=== PATIENT | male | born 1985 | race Two or more races ===

== ENCOUNTER 2017-08-05 15:50 | Emergency (ER) | payer BC ==
[2017-08-05] MEDS ORDERED: Ketorolac 60 MG/2 ML SDV IM ONE (16:32)
--- NOTE | 2017-08-05 16:32 | EDM.PDOC ---
ED HPI GENERAL MEDICAL PROBLEM - General Chief Complaint: Back Pain or Injury Stated Complaint: BACK PAIN Time Seen by Provider: 08/05/17 16:30 Source of Information: Reports: Patient - History of Present Illness INITIAL COMMENTS - FREE TEXT/NARRATIVE: HISTORY AND PHYSICAL: History of present illness: Patient with history of low back pain last visited in 2005 presents with 7 out of 10 low back pain radiating to his left buttock as well as down the right posterior extremity to the level of the knee after lifting batteries in his garage at home. No footdrop or saddle anesthesia no bowel or urine symptoms Patient has taken ibuprofen without much benefit since Thursday when the injury occurred last dose at 10 AM, he did this local chiropractor who recommended he be seen through the emergency room Patient has limited movement due to pain Review of systems: As per history of present illness and below otherwise all systems reviewed and negative. Past medical history: As per history of present illness and as reviewed below otherwise noncontributory. Surgical history: As per history of present illness and as reviewed below otherwise noncontributory. Social history: No reported history of drug or alcohol abuse. Family history: As per history of present illness and as reviewed below otherwise noncontributory. Physical exam: HEENT: Atraumatic, normocephalic, pupils reactive, negative for conjunctival pallor or scleral icterus, mucous membranes moist, throat clear, neck supple, nontender, trachea midline. Lungs: Clear to auscultation, breath sounds equal bilaterally, chest nontender. Heart: S1S2, regular, negative for clicks, rubs, or JVD. Abdomen: Soft, nondistended, nontender. Negative for masses or hepatosplenomegaly. Negative for costovertebral tenderness. Pelvis: Stable nontender. Genitourinary: Deferred. Rectal: Deferred. Extremities: Atraumatic, negative for cords or calf pain. Neurovascular unremarkable. Neuro: Awake, alert, oriented. Cranial nerves II through XII unremarkable. Cerebellum unremarkable. Motor and sensory unremarkable throughout. Exam nonfocal. No footdrop or saddle anesthesia Diagnostics: []Lumbar spine Therapeutics: []Toradol 60 IM Rest ice ibuprofen Discharge was considered however patient has considerable difficulty getting on and off exam table he does not feel ably able to make it up a flight of stairs he has been urinating in a can as he is unable to get up to go to the bathroom. Patient be admitted for intractable pain discussed with Dr. Reyna Impression: Intractable pain []Low back pain Right sciatic distribution pain Definitive disposition and diagnosis as appropriate pending reevaluation and review of above. Back Pain Score (Numeric/FACES): 10 - Related Data Allergies Allergy/AdvReac Type Severity Reaction Status Date / Time No Known Allergies Allergy Verified 08/05/17 16:16 Home Meds: Home Meds Ibuprofen 4 tab PO Q4HR PRN 08/05/17 [History] Past Medical History - Past Health History Medical/Surgical History: Denies Medical/Surgical History Other Cardiovascular History: "Have had elevated BP, this has been true for awhile now" Other Respiratory History: "Stop breathing when I roll onto my back" Denies having a sleep study, reports no local practitioner in the area Other Musculoskeletal History: hx: fracturing Middle finger in Left hand, Current fracture to Right ankle Other Psychiatric History: hx: anxiety in past Social & Family History - Family History Family Medical History: Noncontributory - Tobacco Use Smoking Status *Q: Never Smoker - Caffeine Use Caffeine Use: Reports: None - Alcohol Use Days Per Week of Alcohol Use: 1 Number of Drinks Per Day: 5 Total Drinks Per Week: 5 - Recreational Drug Use Recreational Drug Use: No Drug Use in Last 12 Months: No ED ROS GENERAL - Review of Systems Review Of Systems: ROS reveals no pertinent complaints other than HPI. ED EXAM, GENERAL - Physical Exam Exam: See Below Course - Vital Signs Last Recorded V/S: Last Vital Signs Temp 97.2 F 08/05/17 16:17 Pulse 78 08/05/17 16:17 Resp 14 08/05/17 16:17 BP 136/88 08/05/17 16:17 Pulse Ox 96 08/05/17 16:17 - Orders/Labs/Meds Orders: Active Orders 24 hr Category Date Time Status Lumbar Spine 2 or 3V [CR] Stat Exams 08/05/17 16:27 Taken Meds: Medications Discontinued Medications Generic Name Dose Route Start Last Admin Trade Name Freq PRN Reason Stop Dose Admin Ketorolac Tromethamine 60 mg 08/05/17 16:32 08/05/17 16:44 Toradol IM 08/05/17 16:33 60 mg ONETIME ONE Administration Departure - Departure Time of Disposition: 17:45 Disposition: Refer to Observation Condition: Fair Clinical Impression: Intractable pain, Low back pain - Discharge Information Referrals: PCP,None [Primary Care Provider] - Forms: ED Department Discharge - My Orders Last 24 Hours: My Active Orders 08/05/17 16:27 Lumbar Spine 2 or 3V [CR] Stat - Assessment/Plan Last 24 Hours: My Active Orders 08/05/17 16:27 Lumbar Spine 2 or 3V [CR] Stat
[2017-08-05 19:04] VITALS: BP 150/92
--- NOTE | 2017-08-06 08:47 | CR ---
EXAM DATE: 08/05/17 PATIENT'S AGE: 32 Patient: ELSIE RAMIREZ Facility: [place], [place] Site . Site : 1985 Study: XRay Spine Lumbar [id number] 5:15:13 PM Ordering Physician: Papito Lawson Final Report: INDICATION: Back pain after lifting heavy object TECHNIQUE: Lumbar spine 3 view. COMPARISON: None FINDINGS: Bones: Alignment is normal. No fractures or significant bone lesions. Joints: Disc spaces and facets are unremarkable. Soft tissues: Unremarkable. IMPRESSION: Unremarkable lumbar spine. Dictated by Sol Keller MD @ Aug 05 2017 5:26PM (Electronic Signature) Report Signed by Proxy. REINIER
== END 2017-08-05 19:00 | disposition left against medical advice (07) ==
LOC: MW.ED 15:50 → UNDOADMOB 17:46 → MW.MS 17:46 → UNDODISOB 18:51 → MW.ED 19:00
DX: M54.5 Low back pain (principal)
CPT/HCPCS: 72100; 96372; 99283; J1885